=== PATIENT | male | born 1940 | race Caucasian/White ===

== ENCOUNTER 2017-02-24 09:15 | Emergency (ER) | payer OTHER ==
[~2017-02-24] VITALS: Ht 170.2 cm; Wt 82.5 kg
[~2017-02-24 09:15] MED LIST: CALCIUM600 MG PO; COUMADIN5 MG PO; COUMADIN7.5 MG PO; DAILY VITAMIN1 EAC2 PO; FISH OIL 1,0001 EAC2 PO; LIPITOR20 MG PO
[2017-02-24] MEDS ORDERED: ZITHROMAX250 MG PO (11:21)
== END 2017-02-24 11:34 | disposition home or self-care (01) ==
LOC: ED 09:15
PROC: 0HQ0XZZ Repair Scalp Skin, External Approach (ICD-10-PCS; principal; 2017-02-24)
DX: S01.01XA Laceration without foreign body of scalp, initial encounter (principal); Z86.711 Personal history of pulmonary embolism; Z87.891 Personal history of nicotine dependence; Z88.0 Allergy status to penicillin; Z79.899 Other long term (current) drug therapy; Z79.01 Long term (current) use of anticoagulants; W01.0XXA Fall on same level from slipping, tripping and stumbling without subsequent striking against object, initial encounter
CPT/HCPCS: 12001; 70450; 85610; 99284